=== PATIENT | male | born 1965 | race Caucasian/White ===

== ENCOUNTER 2024-07-07 18:32 | Emergency (ER) | payer MEDICARE, OTHER ==
[~2024-07-07] VITALS: Ht 180.3 cm; Wt 100.0 kg
[2024-07-07] MEDS ORDERED: ESCI-8 PO (18:43)
[2024-07-07] MEDS ORDERED: ATOR20TA PO (18:43)
[2024-07-07] MEDS ORDERED: DONE-51 PO (18:43)
[2024-07-07] MEDS ORDERED: TAMS0.4C94 PO (18:43)
[2024-07-07 18:45] VITALS: TEMP 97.8
[2024-07-08 00:45] VITALS: BP 130/78; PULSE 80; RESP 18; O2SAT 99
== END 2024-07-08 00:57 | disposition home or self-care (01) ==
LOC: EMS 18:32
DX: S93.401A Sprain of unspecified ligament of right ankle, initial encounter (principal); S63.501A Unspecified sprain of right wrist, initial encounter; S60.221A Contusion of right hand, initial encounter; S09.90XA Unspecified injury of head, initial encounter; Z79.899 Other long term (current) drug therapy; W01.198A Fall on same level from slipping, tripping and stumbling with subsequent striking against other object, initial encounter; Y93.89 Activity, other specified; Y92.89 Other specified places as the place of occurrence of the external cause; Y99.8 Other external cause status
CPT/HCPCS: 29515; 99284; 73110-TC; 73130-TC; 73610-TC; Z7502